=== PATIENT | male | born 1980 | race Asian ===

== ENCOUNTER 2025-01-24 21:34 | Emergency (ER) | payer OTHER, SELFPAY ==
[2025-01-24 21:37] VITALS: BP 127/86
[2025-01-24 22:00] VITALS: BP 126/89
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
== END 2025-01-24 23:04 | disposition home or self-care (01) ==
LOC: EMR 21:34
PROVIDERS: EMERGENCY PHYSICIAN Emergency Medicine; FAMILY PHYSICIAN Internal Medicine
DX: S06.0X0A Concussion without loss of consciousness, initial encounter (principal); V00.121A Fall from non-in-line roller-skates, initial encounter; Y93.51 Activity, roller skating (inline) and skateboarding
CPT/HCPCS: 99284; 70450